=== PATIENT | female | born 1985 | race Caucasian/White ===

== ENCOUNTER 2016-10-26 09:32 | Emergency (ER) | payer MEDICAID ==
[~2016-10-26] VITALS: Ht 165.1 cm; Wt 74.5 kg
[2016-10-26 09:38] VITALS: Ht 165.1 cm; Wt 74.5 kg
[2016-10-26] MEDS ORDERED: IBUPROFEN 800 MG TAB PO ONE (10:00)
--- NOTE | 2016-10-26 10:22 | RADRPT ---
PROCEDURE: Right foot series. CLINICAL INDICATION: Right foot pain after trauma. Evaluate for foreign body TECHNIQUE: Three views of the right foot are available for review. COMPARISON: None available FINDINGS: There is normal mineralization and alignment of the bones of the right foot. Lisfranc's joint appea rs intact. There is no evidence of acute fracture or dislocation. Joint spaces are well maintained . No osteophytes or erosions are seen. There is a subtle 2 mm linear hyperdensity in the medial so ft tissues of the foot seen on the frontal view. This finding is not appreciated on the other views . IMPRESSION: 1. No evidence of fracture or dislocation. 2. Subtle 2 mm hyperdensity in the medial aspect of the foot at the level of the first tarsal metat arsal joint may represent a tiny foreign body. RPTAT: KK .Marbin Parsons MD, Date Time Electronically viewed and signed by .Marbin Parsons MD, on 10/26/2016 10:22 .B/
[2016-10-26] MEDS ORDERED: CEPH-443 PO (10:43)
[2016-10-26] MEDS ORDERED: IBUP-1542 PO (10:43)
--- NOTE | 2016-10-26 10:47 | ERD ---
ER Documentation Chief Complaint Date/Time DATE: 10/26/16 TIME: 10:45 Chief Complaint puncture wound to right foot, stepped on a ceramic fireplace today HPI Patient is a 31-year-old female who today stepped on a ceramic fireplace and suffered a small puncture wound to her right foot. She denies mild to moderate pain when she steps. Does not think there is any foreign body retained inside. Denies any numbness or tingling. Denies any bleeding or drainage. Has not taken any medication for pain. Her tetanus is up-to-date. ROS All systems reviewed and are negative except as per history of present illness. Medications Home Meds Active Scripts Ibuprofen* (Motrin*) 600 Mg Tab, 600 MG PO Q6, #30 TAB Prov:MARILOU SHELDON PA-C 10/26/16 Cephalexin* (Keflex*) 500 Mg Capsule, 500 MG PO QID for 7 Days, CAP Prov:MARILOU SHELDON PA-C 10/26/16 Allergies Allergies: Coded Allergies: No Known Allergy (Unverified , 10/26/16) PMhx/Soc Medical and Surgical Hx: pt denies Medical Hx, pt denies Surgical Hx Hx Alcohol Use: No Hx Substance Use: No Hx Tobacco Use: No Smoking Status: Never smoker FmHx Family History: No diabetes Physical Exam Vitals Vital Signs Date Time Temp Pulse Resp B/P Pulse Ox O2 Delivery O2 Flow Rate FiO2 10/26/16 09:38 97.6 98 18 130/72 100 Physical Exam Const: [] Head: Atraumatic Eyes: Normal Conjunctiva ENT: Normal External Ears, Nose and Mouth. Neck: Full range of motion..~ No meningismus. Resp: Clear to auscultation bilaterally Cardio: Regular rate and rhythm, no murmurs Abd: Soft, non tender, non distended. Normal bowel sounds Skin: Right foot has small puncture wound on the plantar surface, no bleeding or drainage, no evidence of retained foreign body Results 24 hrs Current Medications Medications (Trade) Dose Ordered Sig/Lynda Route PRN Reason Start Time Stop Time Status Last Admin Dose Admin Ibuprofen (Motrin) 800 mg ONCE ONCE PO 10/26/16 10:00 10/26/16 10:01 DC 10/26/16 09:52 Procedures/MDM Patient has small puncture wound secondary to stepping on ceramic fireplace today. Patients is alert, oriented, well appearing, and in no distress with normal vital signs. There is no fever, tachycardia, or tachypnea. Exam is otherwise normal she is well-appearing in no distress. X-ray reveals possible 2 mm foreign body. I reviewed his findings with Dr. Bright he states that it is okay to send the patient home with antibiotics she should follow with primary care for possible removal of foreign body as it we do not believe the risks outweigh the benefits of attempted to locate and remove the foreign body at this time. Her wound was irrigated and cleaned here in the emergency room and appropriately dressed and bandaged. Patient was given a prescription for antibiotics and pain medication. Patient counseled regarding my diagnostic impression and care plan. Prior to discharge all questions answered. Pt agrees with treatment plan and understands strict return precautions. Pt is instructed to follow up with primary care provider within 24-48 hours. Precautionary instructions provided including instructions to return to the ER if not improving or for any worsening or changing symptoms or concerns. Departure Diagnosis: Primary Impression: Soft tissues foreign body Additional Impression: Puncture wound Condition: Stable Patient Instructions: Puncture Wound, Foot Referrals: [facility] YOU HAVE RECEIVED A MEDICAL SCREENING EXAM AND THE RESULTS INDICATE THAT YOU DO NOT HAVE A CONDITION THAT REQUIRES URGENT TREATMENT IN THE EMERGENCY DEPARTMENT. FURTHER EVALUATION AND TREATMENT OF YOUR CONDITION CAN WAIT UNTIL YOU ARE SEEN IN YOUR DOCTORS OFFICE WITHIN THE NEXT 1-2 DAYS. IT IS YOUR RESPONSIBILITY TO MAKE AN APPOINTMENT FOR FOLOW-UP CARE. IF YOU HAVE A PRIMARY DOCTOR --you should call your primary doctor and schedule an appointment IF YOU DO NOT HAVE A PRIMARY DOCTOR YOU CAN CALL OUR PHYSICIAN REFERRAL HOTLINE AT IF YOU CAN NOT AFFORD TO SEE A PHYSICIAN YOU CAN CHOSE FROM THE FOLLOWING [facility] [address] [facility] [address] [facility] [facility] [address] [facility] [address] [facility] [address] [facility]. [address] [facility] YOU HAVE RECEIVED A MEDICAL SCREENING EXAM AND THE RESULTS INDICATE THAT YOU DO NOT HAVE A CONDITION THAT REQUIRES URGENT TREATMENT IN THE EMERGENCY DEPARTMENT. FURTHER EVALUATION AND TREATMENT OF YOUR CONDITION CAN WAIT UNTIL YOU ARE SEEN IN YOUR DOCTORS OFFICE WITHIN THE NEXT 1-2 DAYS. IT IS YOUR RESPONSIBILITY TO MAKE AN APPOINTMENT FOR FOLOW-UP CARE. IF YOU HAVE A PRIMARY DOCTOR --you should call your primary doctor and schedule and appointment IF YOU DO NOT HAVE A PRIMARY DOCTOR YOU CAN CALL OUR PHYSICIAN REFERRAL HOTLINE AT . IF YOU CAN NOT AFFORD TO SEE A PHYSICIAN YOU CAN CHOSE FROM THE FOLLOWING [facility] INSTITUTIONS: [facility] [address] [place] [address] [facility] [address] [place] [address] [facility] [place] [address] [place] [address] Additional Instructions: Call your primary care doctor TOMORROW for an appointment during the next 1-2 days.See the doctor sooner or return here if your condition worsens before your appointment time. MARILOU SHELDON PA-C Oct 26, 2016 10:47
== END 2016-10-26 10:50 | disposition home or self-care (01) ==
LOC: FTE 09:32
DX: S91.341A Puncture wound with foreign body, right foot, initial encounter (principal); W26.8XXA Contact with other sharp object(s), not elsewhere classified, initial encounter; Y92.9 Unspecified place or not applicable
CPT/HCPCS: 73630; Z7502; Z7610